=== PATIENT | female | born 1960 | race Two or more races ===

== ENCOUNTER 2022-07-09 10:13 | Emergency (ER) | payer MEDICAID ==
[~2022-07-09] VITALS: Ht 165.1 cm; Wt 70.1 kg
[2022-07-09] MEDS ORDERED: CEPH-510 PO (13:38)
[2022-07-09] MEDS ORDERED: KETOROLAC TROMETH 30 MG/ML 1ML VIAL IM ONE (13:45)
[2022-07-09 13:53] VITALS: BP 150/98
== END 2022-07-09 13:54 | disposition home or self-care (01) ==
LOC: ER 10:13
DX: R22.41 Localized swelling, mass and lump, right lower limb (principal); E78.5 Hyperlipidemia, unspecified; I10 Essential (primary) hypertension
CPT/HCPCS: 73630; 93971